=== PATIENT | female | born 1990 ===

== ENCOUNTER 2024-02-27 08:57 | Inpatient (IN) | payer MEDICAID, OTHER, SELFPAY ==
[2024-02-27] MEDS ORDERED: Bupivacaine 0.25% HCL 30 ML VIAL ONE (16:00)
[2024-02-27] MEDS ORDERED: Ondansetron PF 4 MG/2 ML Vial IVP PRN (22:17)
[2024-02-27] MEDS ORDERED: Promethazine HCl 25 MG/ML VIAL IM PRN (22:17)
[2024-02-27] MEDS ORDERED: Methylergonovine 0.2 MG/ML VIAL IM PRN (22:17)
[2024-02-27] MEDS ORDERED: Carboprost 250 MCG/ML AMP IM PRN (22:17)
[2024-02-27] MEDS ORDERED: Diphenoxylate HCl/Atropine Tablet PO PRN (22:17)
[2024-02-27] MEDS ORDERED: Tranexamic Acid 1,000 MG/10 ML VIAL IVP PRN (22:17)
[2024-02-27] MEDS ORDERED: Acetaminophen 500 MG TAB PO PRN (22:17)
[2024-02-27] MEDS ORDERED: hydrALAZINE 20 MG/ML VIAL SLOW IVP PRN (22:17)
[2024-02-27] MEDS ORDERED: Misoprostol 200 MCG TAB PR PRN (22:17)
[2024-02-27] MEDS ORDERED: Lidocaine 1% (PF) 30 ML VIAL SC PRN (22:17)
[2024-02-27] MEDS ORDERED: Ibuprofen 800 MG TAB PO PRN (22:17)
[2024-02-27] MEDS ORDERED: Lactated Ringer's 1,000 ML IV SCH (22:30)
[2024-02-27] MEDS ORDERED: Oxytocin 30 units/NS 500 ML 500 ML IV SCH ×3 (22:30)
[2024-02-27 23:27] LABS: Hematocrit 34.9 % (34.9-44.5); Hemoglobin 12.1 g/dL (12.0-15.5); Mean Corpuscular HGB CONC 34.7 g/dL (32.0-36.0); Mean Corpuscular Hemoglobin 31.7 pg (27.0-33.0); Mean Corpuscular Volume 91.4 fL (81.6-98.3); Mean Platelet Volume 12.1 fL (7.4-10.4); Platelet Count 192 10x3/uL (150-450); RBC Distribution Width 13.2 % (11.5-14.5); Red Blood Cell (RBC) Count 3.82 10x6/uL (3.90-5.03)
[2024-02-27 23:38] VITALS: BMI 36.5
[2024-02-27] MEDS: Misoprostol 100 MCG TAB VAG SCH (23:54)
[2024-02-27 23:58] LABS: Syphilis Antibody Nonreactive (Nonreactive); Syphilis Antibody Index 0.14 S/CO (<1.00 Non-Reactive)
[2024-02-28 00:01] LABS: HBsAg Index 0.22 S/CO (0-0.99); Hep B Surf Ag - L&D Non-Reactive S/CO (NonReactive)
[2024-02-28] MEDS ORDERED: ePHEDrine Sulfate 50 MG/10 ML VIAL SLOW IVP PRN (08:53)
[2024-02-28] MEDS ORDERED: diphenhydrAMINE 50 MG/ML VIAL IVP PRN (08:53)
[2024-02-28] MEDS ORDERED: Ondansetron PF 4 MG/2 ML Vial IVP PRN (08:53)
[2024-02-28] MEDS ORDERED: Promethazine HCl 25 MG/ML VIAL IM PRN (08:53)
[2024-02-28] MEDS ORDERED: Naloxone HCl 0.4 mg/ml Vial IVP PRN ×2 (08:53)
[2024-02-28] MEDS ORDERED: Lactated Ringer's 500 ML IV PRN (08:53)
[2024-02-28] MEDS ORDERED: Moisturizing Cream (Eucerin) 113 GM JAR TOP PRN (08:53)
[2024-02-28] MEDS ORDERED: Acetaminophen 325 MG TAB PO PRN (08:53)
[2024-02-28] MEDS ORDERED: Communication Order-Pharmacy FS SCH (09:00)
[2024-02-28] MEDS ORDERED: fentaNYL 2 mcg/Ropivacaine 0.2% Epidural 100 ML CADD EPIDURAL SCH (09:00)
[2024-02-28] MEDS: fentaNYL/Ropivacaine Epidural 100 ML ONE (09:29)
[2024-02-28 15:15] LABS: Analyzer IN Cardio CS NICU; RapidComm Collect By cbn
[2024-02-28 15:16] LABS: Analyzer IN Cardio CS NICU; RapidComm Collect By CBN; pH (Cord, venous) 7.262 (7.250-7.350)
[2024-02-28] MEDS ORDERED: Bisacodyl 10 MG SUPP PR PRN (15:17)
[2024-02-28] MEDS ORDERED: Preparation H Ointment 28 GM TUBE PR PRN (15:17)
[2024-02-28] MEDS ORDERED: diphenhydrAMINE 25 MG CAP PO PRN (15:17)
[2024-02-28] MEDS ORDERED: Milk Of Magnesia 30 ML UDCUP PO PRN (15:17)
[2024-02-28] MEDS ORDERED: Lanolin Ointment 7 GM TUBE TOP PRN (15:17)
[2024-02-28] MEDS: Ibuprofen 800 MG TAB PO SCH (16:04)
[2024-02-28] MEDS ORDERED: Morphine 4 MG/ML VIAL SLOW IVP SCH (16:30)
[2024-02-28] MEDS: Oxytocin 30 units/NS 500 ML 500 ML ONE (18:38)
[2024-02-28] MEDS: Ferrous Sulfate 325 MG TAB PO SCH (18:38)
[2024-02-28] MEDS: Boostrix 0.5 ML (Tdap) VIAL (>/=7 yrs of age) IM ONE (18:38)
[2024-02-28] MEDS: fentaNYL 50 mcg/mL 1 mL Vial SLOW IVP SCH (18:38)
[2024-02-28] MEDS: Docusate 100 MG CAP PO SCH (21:06)
[2024-02-29] MEDS: Ibuprofen 800 MG TAB PO SCH (00:15)
[2024-02-29 06:14] VITALS: TEMP 98.1
[2024-02-29 12:26] VITALS: BP 115/64
== END 2024-02-29 17:30 | disposition home or self-care (01) | DRG 807 ==
LOC: CSHLD 08:57 → UNDOADMIN 20:57 → CSHLD 20:57 → CSHPP 02-28 17:45
PROVIDERS: ADMIT Family Medicine; ATTEND Family Medicine
PROC: 10E0XZZ Delivery of Products of Conception, External Approach (ICD-10-PCS; principal; 2024-02-28)
PROC: 0HQ9XZZ Repair Perineum Skin, External Approach (ICD-10-PCS; 2024-02-28)
PROC: 10H07YZ Insertion of Other Device into Products of Conception, Via Natural or Artificial Opening (ICD-10-PCS; 2024-02-28)
DX: O70.0 First degree perineal laceration during delivery (principal); Z37.0 Single live birth; Z3A.39 39 weeks gestation of pregnancy; Z79.899 Other long term (current) drug therapy
CPT/HCPCS: 36415; 51702; 82805; 85027; 86780; 86850; 86900; 86901; 87340; J0665